=== PATIENT | female | born 1980 | race Caucasian/White ===

== ENCOUNTER 2024-12-08 15:47 | Emergency (ER) | payer OTHER, SELFPAY ==
--- NOTE | 2024-12-08 16:02 | PC.NURSE ---
Pt left from registration. Decided to go to ER due to pain.
--- OUTSIDE RECORDS SUMMARY | 2024-12-08 17:44 | XMS_ITS | Encounter Summary ---
Author Organization [facility] Healthcare Address [address] [place] [address] Care Team Providers Care Fashion Buying Internship Name Role Phone Zaire Garcia MD Unavailable [phone] Johanna Henry MD Primary Care Provide r Encounter Details Date Type Department Care Team (Late st Contact Info) Description 12/08/2024 - 12/08/2024 4:26 PM CDT Emergency [facility] Emergency Department [address] [place] [address] Discharge Disposition: ED Dismiss - Never Arrived Social History Tobacco Use Types Packs/Day Years Used Date Smoking Tobacco: Every Day Smokeless Tobacco: Current Comments:patient uses vapor cigarette Alcohol Use Standard Drinks/Week Comments Yes 0 (1 standard drink = 0.6 oz pur e alcohol) Social PHQ-2 Answer Date Recorded PHQ-2 Total Score (If total score is 3 or more points, staff should administer the PHQ-9) 2 10/16/2024 Comments No Sex and Gender Information Value Date Recorded Sex Assigned at Not on file 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 Gender Identity Not on file Sexual Orientation Not on file documented as of this encounter Discharge Disposition Disposition Code Departure Means Destination ED Dismiss - Never Arrived documented in this encounter Plan of Treatment Not on file documented as of this encounter Visit Diagnoses Not on filedocumented in this encounter Care Teams Fashion Buying Internship Relationship Specialty Start Date End Date Johanna Henry MD [address] [place] [id number] PCP - General Family Medicine 04/25/22 Zaire Garcia MD [address] [facility] [address] [address] Beef Pluck Trimmer Obstetrics and Gynecology 10/29/19 documented as of this encounter
--- OUTSIDE RECORDS SUMMARY | 2024-12-08 17:44 | XMS_ITS | Continuity of Care Document ---
Author Organization [facility] Address [address] [place] [address] Phone Care Team Providers Care Sales Trainer Name Role Phone Vangie Amador DO Unavailable Unavailable Procedures Procedure Date Flu Vaccine, Split, 3+yrs, IM 2 Advance Directives Directive Yes / No Effective Date File Name No Information Encounters Encounter Description Practice Location Reason(s) For Visit Diagnoses Date Provider Providers Copied on Encounter [facility], [address], [place], [place], [id number], [place] tel:[phone] Other No Information Marjorie Vences. [address] [facility], [address], [place], [place], [id number], [place]. tel:[phone] Family History Family Member Type Diagnosis Age At Onset No Information Payers Payer name Insurance type Covered libertarian ID Authoriza tion(s) [employer] [id number] Social History Type Description Quantity Date Captured Comments Sex Female Smoking Status No Information Chief Complaint And Reason For Visit No Information Reason For Referral Reason For Referral No Information History Of Present Illness Encounter Date Complaint History Of Prese nt Illness No Information Functional Status Date Functional Assessmen t No Information Instructions Date Instruction Additional Infor mation No Information Assessments Type Assessment Date No Information Patient Care Teams Name Effective Dates (start - stop) Status Members No Information
--- OUTSIDE RECORDS SUMMARY | 2024-12-08 17:44 | XMS_ITS | Encounter Summary ---
Author Organization [facility] Healthcare Address [address] [place] [address] Care Team Providers Care Photoengraver Name Role Phone Zaire Garcia MD Unavailable Johanna Henry MD Primary Care Provide r Encounter Details Date Type Department Care Team (Late st Contact Info) Description 10/21/2024 Results Follow-Up [facility] [address] [facility] [address] [place] [address] Jasmin Polanco, BACK HOE MACHINE OPERATOR [address] [facility] [address] [address] Social History Tobacco Use Types Packs/Day Years [...] on file 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 Gender Identity Not on file Sexual Orientation Not on file documented as of this encounter Plan of Treatment Not on file documented as of this encounter Visit Diagnoses Not on filedocumented in this encounter Care Teams Photoengraver Relationship Specialty Start Date End Date Johanna Henry MD [address] [facility] [address] [place] [address] PCP - General Family Medicine 04/25/22 Zaire Garcia MD [address] [facility] [address] [place] [address] [place] [address] Terra Cotta Roofer Obstetrics and Gynecology 10/29/19 documented as of this encounter
--- OUTSIDE RECORDS SUMMARY | 2024-12-08 17:44 | XMS_ITS | Encounter Summary ---
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 Let patient know her mammogram is benign. Repeat in 1 year ING TEACHER documented in this encounter Plan of Treatment Not on file documented as of this encounter Visit Diagnoses Not on filedocumented in this encounter Care Teams Bedspread Inspector Relationship Specialty Start Date End Date Johanna Henry MD [address] [facility] [address] [place] [address] PCP - General Family Medicine 04/25/22 Zaire Garcia MD [address] [facility] [address] [place] [address] Medical Billing Manager Obstetrics and Gynecology 10/29/19 documented as of this encounter
--- OUTSIDE RECORDS SUMMARY | 2024-12-08 17:44 | XMS_ITS | Clinical Summary ---
Author Organization [facility] B Address [address] [place] [address] Care Team Providers Care Manual Arts Therapist Name Role Phone Zaire Garcia MD Unavailable [phone] Johanna Henry MD Primary Care Provide r Allergies No known active allergies Medications No known medications Active Problems Problem Noted Date Diagnosed Date Benign mole 04/26/2023 Assessment & Plan (04/26/2023 9:43 AM CDT): New Will refer to dermatology for further evaluation BMI 29.0-29.9,adult 11/09/2022 Assessment & Plan (04/28/2024 10:03 AM CDT): She was counseled on the importance of maintaining a healthy weight. Encourage diet and exercise Assessment & Plan (04/26/2023 9:42 AM CDT): She was counseled on the importance of maintaining a healthy weight. Assessment & Plan (11/09/2022 11:13 AM REPATCHER): She was counseled on the importance of maintaining a healthy weight. She has been working on diet for a few weeks Given information to weightloss clinic here in [place] Encounter for wellness examination 04/25/2022 Assessment & Plan (04/28/2024 10:03 AM CDT): Labs reviewed and discussed Pap smear:follows with ob Mammo referral placed Tdap given F/u in 1 year annual Assessment & Plan (04/25/2023 10:24 PM CDT): Labs reviewed and discussed Pap smear:follows with ob F/u in 1 year annual Assessment & Plan (04/25/2022 11:06 AM CDT): Ordered CBC, cmp, lipid, hgb a1c, HIV, hep c, TSH, and free t4 Pap smear:follows with ob F/u in 1 year annual Resolved Problems Problem Noted Date Diagnosed Date Resolved Date Sterilization 10/01/2019 11/11/2019 Overview (10/01/2019): Added automatically from request for surgery [id number] No pathologic diagnosis 05/06/201307/04 Overview (12/06/2016): No diagnosis Encounters Date Type Department Care Team Description 12/08/2024 Nurse Triage [facility] Primary Care at [address] [address] Johanna Guzman MD 12/08/2024 - 12/08/2024 4:26 PM CDT Emergency [facility] Emergency Department [address] [place] [address] Discharge Disposition: ED Dismiss - Never Arrived 10/27/2024 Orders Only [facility] Primary Care at [address] [address] Johanna Guzman MD Visit for screening mammogram (Primary Dx) 10/27/2024 Results Follow-Up [facility] Primary Care at [address] [place] [address] Johanna Guzman MD 10/25/2024 9:43 AM REPATCHER - 10/25/2024 11:59 PM REPATCHER Hospital Encounter [facility] Imaging Center [address] [place] [address] Screening mammogram, encounter for Discharge Disposition: Discharge to home or self care 10/21/2024 Results Follow-Up [place] [address] [place] [address] Jasmin Polanco NP 10/16/2024 11:50 AM REPATCHER Lab [address] Decreased libido; Perimenopausal vasomotor symptoms; Irregular periods; Other fatigue; Perimenopausal vasomotor symptoms 10/16/2024 11:00 AM REPATCHER Office Visit [address] [place] [address] Jasmin Polanco NP Well woman exam (Primary Dx); Encounter for screening mammogram for breast cancer; Perimenopausal vasomotor symptoms; Decreased libido; Irregular periods; Other fatigue from Last 3 Months Immunizations Immunization Administration Dates Next Due Influenza, Quadrivalent, Spl it, Intramuscular 06/08/2017,06/12/2016 Influenza, Trivalent, IM (MDV) 06/26/2015 Influenza, Unspecified 06/22/2023(Deferr ed: Patient Refused),11/09/2022(Deferred: Patient Refused),04/25/2022(Deferred: Patient Refused),04/03/2022(Deferred: Patient Refused),09/03/2021(Deferred: Patient Refused),07/19/2021(Deferred: Patient Refused),04/03/2021(Deferred: Patient Refused),04/03/2021(Deferred: Patient Refused),06/03/2020(Deferred: Patient Refused),06/08/2017 Tdap 04/28/2024,03/03/2010 Surgical History Surgery Date Site/Laterality Comments SECTION 09/03/2007 - 09/02/2008 section OTHER SURGICAL HISTORY 09/03/2010 - 09/02/2011 Twins, breech/breech: delivery SALPINGECTOMY 10/29/2019 Bilateral Medical History Medical History Date Comments Hx Other Medical Twins Family History Medical History Relation Name Comments Hypertension Father Hypertension; Multiple myeloma Maternal Grandfather Can cer -multiple myeloma; Breast cancer Maternal Great-Grandmother Other Mother Alive and well; Other Sister 2 Alive and well; Relation Name Status Comments Father Maternal Grandfather Maternal Great-Grandmother Mother Alive Sister 1 Alive Sister 2 Social History Tobacco Use Types Packs/Day Years Used Date Smoking Tobacco: Every Day Smokeless Tobacco: Current Tobacco Cessation:Ready to Q uit: Not Asked; Counseling Given: Not Answered Comments:patient uses vapor cigarette Alcohol Use Standard Drinks/Week Comments Yes 0 (1 standard drink = 0.6 oz pur e alcohol) Social PHQ-2 Answer Date Recorded PHQ-2 Total Score (If total score is 3 or more points, staff should administer the PHQ-9) 2 10/16/2024 Comments No Sex and Gender Information Value Date Recorded Sex Assigned at Not on file Legal Sex Female 11:59 PM REPATCHER Gender Identity Not on file Sexual Orientation Not on file Obstetrics History Para Term AB IAB SAB Ectopic Multiple Livin g Live Births 3 2 2 0 1 0 1 0 1 3 3 Date Outcome GA Total Labor Labor/2nd/3rd Weight Sex Type Anes PTL Suzie A1 A5 Name Clin SAB 2007 Term 40w 0d M CS-Un spec Living 1 Term 38w 0d M CS-Un spec Living 1 Term 38w 0d F CS-Un spec Living Last Filed Vital Signs Vital Sign Reading Time Taken Comments Blood Pressure 126/80 10/16/2024 11:01 AM REPATCHER Pulse 79 04/28/2024 9:27 AM CDT Temperature 36.7 C (98 F) 04/28/2024 9:27 AM CDT Respiratory Rate 16 04/28/2024 9:27 AM CDT Oxygen Saturation 99% 04/28/2024 9:27 AM CDT Inhaled Oxygen Concentration - - Weight 73.5 kg (162 lb) 10/16/2024 11:01 AM REPATCHER Height 157.5 cm (5' 2 ) 10/16/2024 11:01 AM REPATCHER Body Mass Index 29.63 10/16/2024 11:01 AM REPATCHER Plan of Treatment Health Maintenance Due Date Last Done Comments Hepatitis B Screening 1999 Covid-19 Vaccine ( season) 2024 06/22/2021, 05/31/2021 Pneumococcal vaccine <65 (1 of 2 - PCV) 04/13/2025 Postponed from 2000 (Patient declined, but will receive in the future) Influenza Vaccine (Season Ended) 2025 06/08/2017, 06/08/2017, 06/12/2016, Additional history exists Cervical Cancer Screening 10/16/20252024, 10/13/2021, 09/29/2019, Additional history exists Depression Screening 10/16/2025 10/16/2024, 04/28/2024, 04/26/2023, Additional history exists Regular Well Visit/Exam 18-64 10/16/2025 10/16/2024, 04/28/2024, 04/26/2023, Additional history exists Breast Cancer Screening-Mammogram 10/25/2025 10/25/2024, 03/23/2023, 03/20/2023, Additional history exists DTaP/Tdap/Td Vaccine (3 - Td or Tdap) 04/28/2034 04/28/2024, 03/03/2010 Hepatitis C Screening Completed 04/25/2022 HPV Vaccines Aged Out No longer eligi ble based on patient's age to complete this topic Varicella Vaccines Discontinued Procedures Procedure Name Priority Date/Time Associated Diagnosis Comments SCREENING MAMMOGRAM BILATERAL W JOSÉ LUIS Schedule Routine, Read Routine (OP Routine) 10/25/2024 9:55 AM REPATCHER Screening mammogram, encounter for PAP AND HPV, REFLEX TO HPV GENOTYPES Routine 10/16/2024 12:45 PM REPATCHER Well woman exam DIFFERENTIAL AUTO Routine 10/16/2024 11: 48 AM REPATCHER Decreased libido Perimenopausal vasomotor symptoms Irregular periods Other fatigue INSULIN, TOTAL Routine 10/16/2024 11:48 AM REPATCHER Decreased libido Perimenopausal vasomotor symptoms Irregular periods Other fatigue THYROID FUNCTION CASCADE Routine 10/16/2024 11:48 AM REPATCHER Decreased libido Perimenopausal vasomotor symptoms Irregular periods Other fatigue CBC WITH AUTO DIFFERENTIAL Routine 10/16/2024 11:48 AM REPATCHER Decreased libido Perimenopausal vasomotor symptoms Irregular periods Other fatigue VITAMIN B12 Routine 10/16/2024 11:48 AM REPATCHER Decreased libido Perimenopausal vasomotor symptoms Irregular periods Other fatigue VITAMIN D 25 HYDROXY Routine 10/16/2024 11:48 AM REPATCHER Decreased libido Perimenopausal vasomotor symptoms Irregular periods Other fatigue FOLLICLE STIMULATING HORMONE Routine 10/16/2024 11:48 AM REPATCHER Decreased libido Perimenopausal vasomotor symptoms Irregular periods Other fatigue LUTEINIZING HORMONE (LH) Routine 10/16/2024 11:48 AM REPATCHER Decreased libido Perimenopausal vasomotor symptoms Irregular periods Other fatigue TESTOSTERONE, TOTAL AND FREE, SERUM Routine 10/16/2024 11:48 AM REPATCHER Decreased libido Perimenopausal vasomotor symptoms Irregular periods Other fatigue GLUCOSE, FASTING Routine 10/16/2024 11:4 8 AM REPATCHER Decreased libido Perimenopausal vasomotor symptoms Irregular periods Other fatigue HEPATITIS C ANTIBODY Routine 04/25/2022 11:48 AM CDT Healthcare maintenance Need for hepatitis C screening test from Last 3 Months or Most Recently Relevant to Health Maintenance Results * Screening Mammogram Bilateral W José Luis (10/25/2024 9:55 AM REPATCHER) Anatomical Region Laterality Modality Breast Bilateral Mammography 10/27/2024 8:55 AM REPATCHER Impressions 10/27/2024 8:55 AM REPATCHER There is no mammographic evidence of malignancy. A 1 year screening mammogram is recommended. BI-RADS: 1 - Negative. The patient has been or will be contacted. The patient will be entered into a reminder system with a target due date of 1 year for her next mammogram. Electronically signed by: Dominique Guy M.D. Narrative 10/27/2024 8:55 AM REPATCHER EXAMINATION: SCREENING MAMMOGRAM BILATERAL W JOSÉ LUIS ORDERING HEALTHCARE PROVIDER: SELF SCREENING MAMMOGRAM HISTORY: Routine screening mammography. COMPARISON: 03/23/2023, 03/20/2023, 12/19/2021 TECHNIQUE: CC and MLO views of the bilateral breasts were obtained with digital technique using breast tomosynthesis with C view. Computer aided detection was utilized. FINDINGS: DENSITY: The breasts are heterogeneously dense, which may obscure small masses. BREASTS: There are no suspicious masses, suspicious calcifications, or other suspicious findings in either breast. There has been no suspicious interval change. us Self Screening Mammogram IMG MAMMO PROCEDURES Fi nal Result * Pap and HPV, reflex to HPV Genotypes (10/16/2024 12:45 PM REPATCHER) Clinical indication Comment [facility] - 01 Comment:NEGATIVE FOR INTRAEP ITHELIAL LESION OR MALIGNANCY. Specimen adequacy: Comment [facility] - 01 Comment:Satisfactory for williams luation. No endocervical component is identified. Clinician provided ICD10 Comment [facility] - 01 Comment:Z01.419 Performed by Comment [facility] - 01 Comment:Lucia Chakraborty, Cyto technologist (ASCP) . . [facility] - 01 Note: Comment [facility] - 01 Comment: The Pap smear is a screening test designed to aid in the detection of premalignant and malignant conditions of the uterine cervix. It is not a diagnostic procedure and should not be used as the sole means of detecting cervical cancer. Both false-positive and false-negative reports do occur. Test methodology Comment [facility] - 01 Comment: This liquid based ThinPrep(R) pap test was screened with the use of an image guided system. HPV Aptima Negative Negative [facility] Comment: This nucleic acid amplification test detects fourteen high-risk HPV types (16,18,31,33,35,39,45,51,52,56,58,59,66,68) without differentiation. HPV Genotype Reflex Comment [facility] - 01 Comment:Criteria not met, HP V Genotype not performed. Thin prep-Endocervical 10/16/2024 12:45 PM REPATCHER 10/16/2024 Narrative [facility] - 2024 7:09 PM REPATCHER Performed at: - [address], [place] [id number] Hide And Skin Colerer: María Fajardo MD, Phone: [phone] Performed at: - [address] [id number] Hide And Skin Colerer: María Fajardo MD, Phone: [phone] Specimen Comment: [id number] Specimen Comment: No. of containers..01 ThinPrep Vial Jasmin Polanco NP LAB CYTOLOGY ORDERABLES Final Re sult [facility] - 01 [facility] 02 * Differential, auto (10/16/2024 11:48 AM REPATCHER) Neutrophil abs 4.5 1.5 - 6.5 K/cumm Imm gran abs 0.0 0.0 - 0.1 K/cumm [facility] ([place]) Lymphocyte abs 1.9 0.8 - 3.3 K/cumm [facility] ([place]) Monocyte abs 0.5 0.2 - 0.8 K/cumm [facility] ([place]) Eosinophil abs 0.1 0.0 - 0.5 K/cumm [facility] ([place]) Basophil abs 0.1 0.0 - 0.1 K/cumm [facility] ([place]) Neutrophil pct 63.1 % [facility] ([place]) Comment: Interpretive Data Percent cell count reference ranges are not reported, since discordance with absolute values may lead to misinterpretation of CBC data. Current Interpretive Data was last revised on 2017. Imm gran pct 0.6 % [facility] ([place]) Comment: Interpretive Data Percent cell count reference ranges are not reported, since discordance with absolute values may lead to misinterpretation of CBC data. Current Interpretive Data was last revised on 2017. Lymphocyte pct 27.1 % [facility] ([place]) Comment: Interpretive Data Percent cell count reference ranges are not reported, since discordance with absolute values may lead to misinterpretation of CBC data. Current Interpretive Data was last revised on 2017. Monocyte pct 6.8 % [facility] ([place]) Comment: Interpretive Data Percent cell count reference ranges are not reported, since discordance with absolute values may lead to misinterpretation of CBC data. Current Interpretive Data was last revised on 2017. Eosinophil pct 1.3 % [facility] ([place]) Comment: Interpretive Data Percent cell count reference ranges are not reported, since discordance with absolute values may lead to misinterpretation of CBC data. Current Interpretive Data was last revised on 2017. Basophil pct 1.1 % [facility] ([place]) Comment: Interpretive Data Percent cell count reference ranges are not reported, since discordance with absolute values may lead to misinterpretation of CBC data. Current Interpretive Data was last revised on 2017. Blood 10/16/2024 11:4 8 AM REPATCHER 10/16/2024 1:34 PM REPATCHER us Jasmin Polanco NP LAB BLOOD ORDERABLES Final Resul t Performing Organization Address City/[facility]/ZIP Co de Phone Number [facility] ([place]) 1 [facility] [place] [address] * Thyroid Function [place] (10/16/2024 11:48 AM REPATCHER) TSH 1.42 0.30 - 4.20 mcIUnit/mL Blood 10/16/2024 11:4 8 AM REPATCHER 10/16/2024 1:34 PM REPATCHER Jasmin Polanco NP LAB BLOOD ORDERABLES Final Resul t Performing Organization Address City/[facility] Co de Phone Number [facility] ([place]) 1 [facility] [place] [address] * CBC with auto differential (10/16/2024 11:48 AM REPATCHER) WBC 7.1 3.8 - 9.9 K/cumm Hgb 12.9 11.9 - 15.5 g/dL [facility] ([place]) Hct 37.9 35.6 - 45.5 % [facility] ([place]) Plt 375 150 - 400 K/cumm [facility] ([place]) MPV 10.0 9.1 - 12.3 fL [facility] ([place]) RBC 4.04 3.90 - 5.20 M/cumm [facility] ([place]) MCV 93.8 81.3 - 96.4 fL [facility] ([place]) MCH 31.9 27.1 - 33.3 pg [facility] ([place]) MCHC 34.0 32.3 - 35.7 g/dL [facility] ([place]) RDW CV 11.9 11.1 - 14.9 % [facility] ([place]) RDW SD 41.0 35.7 - 48.1 fL [facility] ([place]) NRBC abs 0.00 0.00 - 0.01 K/cumm [facility] ([place]) Blood 10/16/2024 11:4 8 AM REPATCHER 10/16/2024 1:34 PM REPATCHER us Jasmin Polanco NP LAB BLOOD ORDERABLES Final Resul t [facility] ([place]) 1 [facility] [employer] [place] [address] * (ABNORMAL) Vitamin D 25 hydroxy (10/16/2024 11:48 AM REPATCHER) Vitamin D 25-OH 23(L) 30 - 80 ng/mL Blood 10/16/2024 11:4 8 AM REPATCHER 10/16/2024 1:34 PM REPATCHER us Jasmin Polanco NP LAB BLOOD ORDERABLES Final Resul t Performing Organization Address City/[facility] Co de Phone Number [facility] ([place]) 1 [facility] [place] [address] * Insulin, total (10/16/2024 11:48 AM REPATCHER) Pathologist [facility] Insulin 13.0 2.6 - 25.0 mcIUnit/mL Comment:Testing performed by : [facility], [address] [facility], [place]., [address] Blood 10/16/2024 11:4 8 AM REPATCHER 10/16/2024 4:04 PM REPATCHER us Jasmin Polanco NP LAB BLOOD ORDERABLES Final Resul t [facility] ([place]) 1 [facility] [place] [address] * (ABNORMAL) Testosterone, Total and Free, Serum (10/16/2024 11:48 AM REPATCHER) Testosterone 33 8 - 60 ng/dL [facility] Comment: ADDITIONAL INFORMATION Testing performed by Liquid Chromatography-Tandem Mass Spectrometry (LC-MS/MS). This test was developed and its performance characteristics determined by [facility] in a manner consistent with CLIA requirements. This test has not been cleared or approved by the U.S. Food and Drug Administration. Test Performed by: [facility] - [address] [address] [employer] Colerer: Joel Lopez Ph.D.; CLIA# [id number] Testosterone, free 1.07(H) <0.13 - 0.98 ng/dL [facility] ([place]) Comment: ADDITIONAL INFORMATION This test was developed and its performance characteristics determined by [facility] in a manner consistent with CLIA requirements. This test has not been cleared or approved by the U.S. Food and Drug Administration. Blood 10/16/2024 11:4 8 AM REPATCHER 10/16/2024 1:34 PM REPATCHER Jasmin Polanco NP LAB BLOOD ORDERABLES Final Resul t [facility] ([place]) 1 [facility] [place] [address] [facility] * LH (10/16/2024 11:48 AM REPATCHER) LH 6.7 IUnits/L Comment: Interpretive Data Males: Adults: 1.7 - 8.6 IUnits/L Females: Follicular: 2.4 - 12.6 IUnits/L Ovulation: 14.0 - 95.6 IUnits/L Luteal: 1.0 - 11.4 IUnits/L Postmenopausal: 7.7 - 58.5 IUnits/L Current interpretive data was last revised on 2019. Testing performed by: [facility], [address] [place] [address]., [address] Blood 10/16/2024 11:4 8 AM REPATCHER 10/16/2024 4:04 PM REPATCHER Jasmin Polanco NP LAB BLOOD ORDERABLES Final Resul t Performing Organization Address City/[facility] Co de Phone Number [facility] ([place]) [address] [place] [address] [place] [address] * Follicle stimulating hormone (10/16/2024 11:48 AM REPATCHER) FSH 4.6 IUnits/L Comment: Interpretive Data Male: Adults: 1.5 - 12.4 IUnits/L Female: Follicular: 3.5 - 12.5 IUnits/L Ovulation: 4.7 - 21.5 IUnits/L Luteal: 1.7 - 7.7 IUnits/L Postmenopausal: 25.8 - 134.8 IUnits/L Current interpretive data was last revised 2015. Testing performed by: [facility], [address] [place] [address]., [address] Blood 10/16/2024 11:4 8 AM REPATCHER 10/16/2024 4:04 PM REPATCHER Jasmin Polanco NP LAB BLOOD ORDERABLES Final Resul t Performing Organization Address City/[facility] Co de Phone Number [facility] ([place]) [address] [place] [address] [place] [address] * (ABNORMAL) Glucose, fasting (10/16/2024 11:48 AM REPATCHER) Glucose, fasting 106(H) 70 - 99 mg/dL Blood 10/16/2024 11:4 8 AM REPATCHER 10/16/2024 1:34 PM REPATCHER Jasmin Polanco NP LAB BLOOD ORDERABLES Final Resul t [facility] ([place]) 1 [facility] [place] [address] * Vitamin B12 (10/16/2024 11:48 AM REPATCHER) Vitamin B12 464 230 - 1,250 pg/mL Blood 10/16/2024 11:4 8 AM REPATCHER 10/16/2024 1:34 PM REPATCHER Jasmin Polanco NP LAB BLOOD ORDERABLES Final Resul t Performing Organization Address [facility] Co de Phone Number [facility] M[facility] ([place]) 1 [facility] [place] [address] * Hepatitis C antibody (04/25/2022 11:48 AM CDT) Hep C Ab Nonreactive Nonreactive [facility] ([place]) Comment: Interpretive Data Nonreactive: Antibodies to HCV not detected. Does NOT exclude the possibility of recent exposure to HCV. Equivocal: Equivocal for HCV antibodies. Supplemental molecular testing will be automatically performed to determine infection status in accordance with current CDC screening recommendations. Reactive: Positive for HCV antibodies. This may represent current or past HCV infection. Supplemental molecular testing will be automatically performed to determine current infection status in accordance with current CDC screening recommendations. Interpretive data was last revised on 2019. Testing performed by: [facility], [address] [place] [address], [place]., [address] Blood 04/25/2022 11:4 8 AM CDT 04/25/2022 2:14 PM CDT Johanna Henry MD LAB MICROBIOL OGY - GENERAL ORDERABLES Edited Result - Final Performing Organization Address City/[facility]/ZIP Co de Phone Number [facility] ([place]) 1 [facility] [employer] [place] [phone] from Last 3 Months or Most Recently Relevant to Health Maintenance Insurance [place] [facility] HMO/PPO Address: [address] [address] [place] [address] [facility]LY [facility] OPEN ACCESS CIGNA [facility] HMO/PPO Address: [address] [address] [place] [address] CIG OPEN ACCESS Care Teams Manual Arts Therapist Relationship Specialty Start Date End Date Johanna Henry MD [address] [place] [address] PCP - General Family Medicine 04/25/22 Zaire Garcia MD [address] [place] [address] [facility] Ob[facility] Gyne[facility] 10/29/19
--- OUTSIDE RECORDS SUMMARY | 2024-12-08 17:44 | XMS_ITS | Referral Summary ---
Author Organization [facility] Building B Address [address] [place] [address] Care Team Providers Care Front Office Coordinator Name Role Phone Zaire Garcia MD Unavailable [phone] Johanna Henry MD Primary Care Provide r Encounters Date Type Department Care Team Description 12/08/2024 Nurse Triage [facility] Primary Care at [address] [place] [phone] Johanna Guzman MD 12/08/2024 - 12/08/2024 4:26 PM CDT Emergency [facility] Emergency Department [address] [place] [address] Discharge Disposition: ED Dismiss - Never Arrived 10/27/2024 Orders Only [facility] Primary Care at [address] [place] [phone] Johanna Gumzan MD Visit for screening mammogram (Primary Dx) 10/27/2024 Results Follow-Up [facility] Primary Care at [address] [place] [address] Johanna Guzman MD 10/25/2024 9:43 AM PICKLE PUMPER - 10/25/2024 11:59 PM PICKLE PUMPER Hospital Encounter [facility] Imaging Center [address] [place] [address] Screening mammogram, encounter for Discharge Disposition: Discharge to home or self care 10/21/2024 Results Follow-Up [facility] [address] [place] [address] Jasmin Polanco NP 10/16/2024 11:50 AM PICKLE PUMPER Lab [address] Decreased libido; Perimenopausal vasomotor symptoms; Irregular periods; Other fatigue; Perimenopausal vasomotor symptoms 10/16/2024 11:00 AM PICKLE PUMPER Office Visit [address] [place] [address] Jasmin Polanco NP Well woman exam (Primary Dx); Encounter for screening mammogram for breast cancer; Perimenopausal vasomotor symptoms; Decreased libido; Irregular periods; Other fatigue from Last 3 Months Allergies No known active allergies Medications No [...] weight. Assessment & Plan (11/09/2022 11:13 AM PICKLE PUMPER): She was counseled on the importance of maintaining a healthy weight. She has been working on diet for a few weeks Given information to weightloss clinic here in [place] Encounter for wellness examination 04/25/2022 Assessment & [...] (10/01/2019): Added automatically from request for surgery [id number] No pathologic diagnosis 05/06/201307/04 Overview (12/06/2016): No diagnosis Immunizations Immunization Administration Dates Next Due Influenza, Quadrivalent, Spl it, Intramuscular 06/08/2017,06/12/2016 Influenza, Trivalent, IM (MDV) 06/26/2015 Influenza, Unspecified 06/22/2023(Deferr ed: Patient Refused),11/09/2022(Deferred: Patient Refused),04/25/2022(Deferred: Patient Refused),04/03/2022(Deferred: Patient Refused),09/03/2021(Deferred: Patient Refused),07/19/2021(Deferred: Patient Refused),04/03/2021(Deferred: Patient Refused),04/03/2021(Deferred: Patient Refused),06/03/2020(Deferred: Patient Refused),06/08/2017 Tdap 04/28/2024,03/03/2010 Social History Tobacco Use Types Packs/Day Years [...] on file Legal Sex Female 11:59 PM PICKLE PUMPER Gender Identity Not on file Sexual Orientation Not on file Last Filed Vital Signs Vital Sign Reading Time Taken Comments Blood Pressure 126/80 10/16/2024 11:01 AM PICKLE PUMPER Pulse 79 04/28/2024 9:27 AM CDT Temperature 36.7 C (98 F) 04/28/2024 9:27 AM CDT Respiratory Rate 16 04/28/2024 9:27 AM CDT Oxygen Saturation 99% 04/28/2024 9:27 AM CDT Inhaled Oxygen Concentration - - Weight 73.5 kg (162 lb) 10/16/2024 11:01 AM PICKLE PUMPER Height 157.5 cm (5' 2 ) 10/16/2024 11:01 AM PICKLE PUMPER Body Mass Index 29.63 10/16/2024 11:01 AM PICKLE PUMPER Plan of Treatment Not on file Procedures Procedure Name Priority Date/Time Associated Diagnosis Comments SCREENING MAMMOGRAM BILATERAL W JOSÉ LUIS Schedule Routine, Read Routine (OP Routine) 10/25/2024 9:55 AM PICKLE PUMPER Screening mammogram, encounter for PAP AND HPV, REFLEX TO HPV GENOTYPES Routine 10/16/2024 12:45 PM PICKLE PUMPER Well woman exam DIFFERENTIAL AUTO Routine 10/16/2024 11: 48 AM PICKLE PUMPER Decreased libido Perimenopausal vasomotor symptoms Irregular periods Other fatigue INSULIN, TOTAL Routine 10/16/2024 11:48 AM PICKLE PUMPER Decreased libido Perimenopausal vasomotor symptoms Irregular periods Other fatigue THYROID FUNCTION CASCADE Routine 10/16/2024 11:48 AM PICKLE PUMPER Decreased libido Perimenopausal vasomotor symptoms Irregular periods Other fatigue CBC WITH AUTO DIFFERENTIAL Routine 10/16/2024 11:48 AM PICKLE PUMPER Decreased libido Perimenopausal vasomotor symptoms Irregular periods Other fatigue VITAMIN B12 Routine 10/16/2024 11:48 AM PICKLE PUMPER Decreased libido Perimenopausal vasomotor symptoms Irregular periods Other fatigue VITAMIN D 25 HYDROXY Routine 10/16/2024 11:48 AM PICKLE PUMPER Decreased libido Perimenopausal vasomotor symptoms Irregular periods Other fatigue FOLLICLE STIMULATING HORMONE Routine 10/16/2024 11:48 AM PICKLE PUMPER Decreased libido Perimenopausal vasomotor symptoms Irregular periods Other fatigue LUTEINIZING HORMONE (LH) Routine 10/16/2024 11:48 AM PICKLE PUMPER Decreased libido Perimenopausal vasomotor symptoms Irregular periods Other fatigue TESTOSTERONE, TOTAL AND FREE, SERUM Routine 10/16/2024 11:48 AM PICKLE PUMPER Decreased libido Perimenopausal vasomotor symptoms Irregular periods Other fatigue GLUCOSE, FASTING Routine 10/16/2024 11:4 8 AM PICKLE PUMPER Decreased libido Perimenopausal vasomotor symptoms Irregular periods Other fatigue HEPATITIS C ANTIBODY Routine 04/25/2022 11:48 AM CDT Healthcare maintenance Need for hepatitis C screening test from Last 3 Months or Most Recently Relevant to Health Maintenance Results * Screening Mammogram Bilateral W José Luis (10/25/2024 9:55 AM PICKLE PUMPER) Anatomical Region Laterality Modality Breast Bilateral Mammography 10/27/2024 8:55 AM PICKLE PUMPER Impressions 10/27/2024 8:55 AM PICKLE PUMPER There is no mammographic evidence of malignancy. A 1 year screening mammogram is recommended. BI-RADS: 1 - Negative. The patient has been or will be contacted. The patient will be entered into a reminder system with a target due date of 1 year for her next mammogram. Electronically signed by: Dominique Guy M.D. Narrative 10/27/2024 8:55 AM PICKLE PUMPER EXAMINATION: SCREENING MAMMOGRAM BILATERAL W JOSÉ LUIS [...] There has been no suspicious interval change. Self Screening Mammogram IMG MAMMO PROCEDURES Fi nal Result * Pap and HPV, reflex to HPV Genotypes (10/16/2024 12:45 PM PICKLE PUMPER) Clinical indication Comment [facility] - Comment:NEGATIVE FOR INTRAEP ITHELIAL LESION OR MALIGNANCY. Specimen adequacy: Comment [facility] - 01 Comment:Satisfactory for williams luation. No endocervical component is identified. Clinician provided ICD10 Comment [facility] - 01 Comment:[id number] Performed by Comment [facility] - Comment:Lucia Chakraborty, Cyto technologist (ASCP) . . [...] do occur. Test methodology Comment [facility] - Comment: This liquid based ThinPrep(R) pap test was screened with the use of an image guided system. HPV Aptima Negative Negative [facility] Comment: This nucleic acid amplification test detects fourteen high-risk HPV types (16,18,31,33,35,39,45,51,52,56,58,59,66,68) without differentiation. HPV Genotype Reflex Comment [facility] - Comment:Criteria not met, HP V Genotype not performed. Thin prep-Endocervical 10/16/2024 12:45 PM PICKLE PUMPER 10/16/2024 Narrative [facility] - 2024 7:09 PM PICKLE PUMPER Performed at: - [facility], [place] [id number] Medical Staffing Coordinator: María Fajardo MD, Phone: [phone] Performed at: - [facility], [place] [id number] Medical Staffing Coordinator: María Fajardo MD, Phone: [phone] Specimen Comment: [id number] Specimen Comment: No. of containers..01 ThinPrep Vial Jasmin Polanco RETAIL SALES CLERK LAB CYTOLOGY ORDERABLES Final Re sult [facility] - 01 [facility] 02 * Differential, auto (10/16/2024 11:48 AM PICKLE PUMPER) Neutrophil abs 4.5 1.5 - 6.5 K/cumm [...] on 2017. Blood 10/16/2024 11:4 8 AM PICKLE PUMPER 10/16/2024 1:34 PM PICKLE PUMPER us Jasmin Polanco NP LAB BLOOD ORDERABLES Final Resul t Performing Organization Address City/[facility]/ZIP Co de Phone Number [facility] ([place]) 1 [facility] [place] [address] * Thyroid Function [place] (10/16/2024 11:48 AM PICKLE PUMPER) Pathologist [facility] TSH 1.42 0.30 - 4.20 mcIUnit/mL Blood 10/16/2024 11:4 8 AM PICKLE PUMPER 10/16/2024 1:34 PM PICKLE PUMPER us Jasmin Polanco NP LAB BLOOD ORDERABLES Final Resul t Performing Organization Address City/[facility] de Phone Number [facility] ([place]) 1 [place] [address] * CBC with auto differential (10/16/2024 11:48 AM PICKLE PUMPER) WBC 7.1 3.8 - 9.9 K/cumm Hgb [...] ([place]) MCHC 34.0 32.3 - 35.7 g/dL [facility] ([place]) RDW CV 11.9 11.1 - 14.9 % [facility] ([place]) RDW SD 41.0 35.7 - 48.1 fL [facility] ([place]) NRBC abs 0.00 0.00 - 0.01 K/cumm [facility] ([place]) Blood 10/16/2024 11:4 8 AM PICKLE PUMPER 10/16/2024 1:34 PM PICKLE PUMPER us Jasmin Polanco NP LAB BLOOD ORDERABLES Final Resul t [facility] ([place]) 1 [facility] [place] [address] * (ABNORMAL) Vitamin D 25 hydroxy (10/16/2024 11:48 AM PICKLE PUMPER) Vitamin D 25-OH 23(L) 30 - 80 ng/mL Blood 10/16/2024 11:4 8 AM PICKLE PUMPER 10/16/2024 1:34 PM PICKLE PUMPER us Jasmin Polanco NP LAB BLOOD ORDERABLES Final Resul t Performing Organization Address [facility] Co de Phone Number [facility] ([place]) 1 [facility] [employer] [place] [address] * Insulin, total (10/16/2024 11:48 AM PICKLE PUMPER) Insulin 13.0 2.6 - 25.0 mcIUnit/mL Comment:Testing performed by : [facility], 1 [place]., [address] Blood 10/16/2024 11:4 8 AM PICKLE PUMPER 10/16/2024 4:04 PM PICKLE PUMPER us Jasmin Polanco NP LAB BLOOD ORDERABLES Final Resul t [facility] ([place]) 1 [facility] [employer] [address] * (ABNORMAL) Testosterone, Total and Free, Serum (10/16/2024 11:48 AM PICKLE PUMPER) Testosterone 33 8 - 60 ng/dL [facility] Comment: ADDITIONAL INFORMATION Testing performed by Liquid Chromatography-Tandem Mass Spectrometry (LC-MS/MS). This test was developed and its performance characteristics determined by [facility] in a manner consistent with CLIA requirements. This test has not been cleared or approved by the U.S. Food and Drug Administration. Test Performed by: [facility] [address] [place] [address] Medical Staffing Coordinator: Joel Lopez Ph.D.; CLIA# [id number] Testosterone, free 1.07(H) <0.13 - 0.98 ng/dL [facility] ([place]) Comment: ADDITIONAL INFORMATION This test was developed and its performance characteristics determined by [facility] in a manner consistent with CLIA requirements. This test has not been cleared or approved by the U.S. Food and Drug Administration. Blood 10/16/2024 11:4 8 AM PICKLE PUMPER 10/16/2024 1:34 PM PICKLE PUMPER Jasmin Polanco RETAIL SALES CLERK LAB BLOOD ORDERABLES Final Resul t [facility]ST[facility] ([place]) 1 [facility] [place] [address] [place] ref Lab * LH (10/16/2024 11:48 AM PICKLE PUMPER) Pathologist [facility] LH 6.7 IUnits/L Comment: Interpretive Data Males: Adults: 1.7 - 8.6 IUnits/L Females: Follicular: 2.4 - 12.6 IUnits/L Ovulation: 14.0 - 95.6 IUnits/L Luteal: 1.0 - 11.4 IUnits/L Postmenopausal: 7.7 - 58.5 IUnits/L Current interpretive data was last revised on 2019. Testing performed by: [facility], [address] [place]., [address] Blood 10/16/2024 11:4 8 AM PICKLE PUMPER 10/16/2024 4:04 PM PICKLE PUMPER us Jasmin Polanco NP LAB BLOOD ORDERABLES Final Resul t [facility] ([place]) 1 [facility] [employer] [place] [address] * Follicle stimulating hormone (10/16/2024 11:48 AM PICKLE PUMPER) FSH 4.6 IUnits/L Comment: Interpretive Data Male: Adults: 1.5 - 12.4 IUnits/L Female: Follicular: 3.5 - 12.5 IUnits/L Ovulation: 4.7 - 21.5 IUnits/L Luteal: 1.7 - 7.7 IUnits/L Postmenopausal: 25.8 - 134.8 IUnits/L Current interpretive data was last revised 2015. Testing performed by: [facility], [address] [place]., [address] Blood 10/16/2024 11:4 8 AM PICKLE PUMPER 10/16/2024 4:04 PM PICKLE PUMPER us Jasmin Polanco NP LAB BLOOD ORDERABLES Final Resul t Performing Organization Address City/[facility] Co de Phone Number [facility] ([place]) 1 [facility] [place] [address] * (ABNORMAL) Glucose, fasting (10/16/2024 11:48 AM PICKLE PUMPER) Glucose, fasting 106(H) 70 - 99 mg/dL Blood 10/16/2024 11:4 8 AM PICKLE PUMPER 10/16/2024 1:34 PM PICKLE PUMPER Jasmin Polanco NP LAB BLOOD ORDERABLES Final Resul t [facility] ([place]) 1 [facility] [place] [address] * Vitamin B12 (10/16/2024 11:48 AM PICKLE PUMPER) Vitamin B12 464 230 - 1,250 pg/mL Blood 10/16/2024 11:4 8 AM PICKLE PUMPER 10/16/2024 1:34 PM PICKLE PUMPER Jasmin Polanco NP LAB BLOOD ORDERABLES Final Resul t Performing Organization Address [facility] Co de Phone Number [facility]UL MCCLELLAND ([place]) 1 [facility] [place] [address] * Hepatitis C antibody (04/25/2022 11:48 AM CDT) Hep C Ab Nonreactive Nonreactive [facility] ([place]) Comment: Interpretive Data Nonreactive: Antibodies to HCV [...] last revised on 2019. Testing performed by: [facility], [address] [place] [address], [place]., [address] Blood 04/25/2022 11:4 8 AM CDT 04/25/2022 2:14 PM CDT Johanna Henry MD LAB MICROBIOL OGY - GENERAL ORDERABLES Edited Result - Final Performing Organization Address [facility]/ZIP Co de Phone Number [facility]LL[facility] ([place]) 1 [facility] [place] [address] from Last 3 Months or Most Recently Relevant to Health Maintenance Insurance [employer] ACCESS [place] [facility] OPEN ACCESS [facility] CIGNA OPEN ACCESS Care Teams Front Office Coordinator Relationship Specialty Start Date End Date Johanna Henry MD [address] [place] [address] PCP - General Family Medicine 04/25/22 Zaire Garcia MD [address] [place] [address] Vice President Of Consulting Services Obstetrics and Gynecology 10/29/19
--- OUTSIDE RECORDS SUMMARY | 2024-12-08 17:44 | XMS_ITS | Encounter Summary ---
Author Organization [facility] Healthcare Address [address] [place] [address] Care Team Providers Care Torch Straightener And Heater Name Role Phone Zaire Garcia MD Unavailable [phone] Johanna Henry MD Primary Care Provide r Encounter Details Date Type Department Care Team (Late st Contact Info) Description 12/08/2024 Nurse Triage [facility] Primary Care at [address] [place] [address] Johanna Henry MD [address] [place] [address] [address] [place] [address] Social History Tobacco Use Types [...] on file Legal Sex Female 11:59 PM NETBACKUP ADMIN Gender Identity Not on file Sexual Orientation Not on file documented as of this encounter Miscellaneous Notes * Telephone Encounter - Sendy Jimenez RN - 12/08/2024 4:39 PM CDT Anabel Blanco reports she developed abdominal cramps at about 10 this morning. About 30 mins later, she has worse cramps. She tried a heating pad to her abdomen which did not help. She vomited x2. Pain felt similar to labor pains. She went to the ER but pain subsided while in the waiting room. She left the ER. Since leaving the ER cramps returned, report they feel like regular period cramps . Next menstrual cycle is expected in 1 week. Denies nausea. She had BM this morning, unsure if itwas diarrhea. She has been afebrile but did get cold sweats while her pain was severe. Denies pain in her back. Reports normal urine output, denies pain with urination. Denies distension of abdomen. heavy repairer: Be seen within 24 hours. Apt scheduled with DANIEL [facility] DIET: * Drink adequate fluids. Eat a bland diet. * Avoid alcohol or caffeinated beverages * Avoid greasy or fatty foods. Recommended BRAT diet CALL BACK IF: * Severe pain lasts over 1 hour * Constant pain lasts over 2 hours * You become worse Reason for Disposition [1] MODERATE pain (e.g., interferes with normal activities) AND [2] pain comes and goes (cramps) AND [3] present > 24 hours (Exception: Pain with Vomiting or Diarrhea - see that Guideline.) Protocols used: Abdominal Pain - [id number] * Telephone Encounter - Sendy Jimenez RN - 12/08/2024 4:36 PM CDT Regarding: Abdominal Pain ----- Message from Rolf Salazar sent at 12/08/2024 4:35 PM CDT ----- Symptom Based Call Chief Complaint(s): Abdominal Pain Duration: started this morning around 10:00 What type of symptom(s) is the patient experiencing? Red Flag. Is the patient concerned they are experiencing a medical emergency requiring an ambulance? No Additional Comments: Patient reports she started having abdominal cramps this morning which then worsened into severe pain in the center of her abdomen. Patient stated it was comparable to labor pains. Patient vomited twice throughout the day. Patient had her take her to [facility] but left without being evaluated because the severe pain went away while she was waiting. Patient states she now has only mild cramping. Does message need to be routed? Yes-Action Needed documented in this encounter Plan of Treatment Not on file documented as of this encounter Visit Diagnoses Not on filedocumented in this encounter Care Teams Torch Straightener And Heater Relationship Specialty Start Date End Date Johanna Henry MD [address] [facility] [address] [place] [address] PCP - General Family Medicine 04/25/22 Zaire Garcia MD [address] [facility] [address] [place] [address] Sustainability Communicator Obstetrics and Gynecology 10/29/19 documented as of this encounter
--- OUTSIDE RECORDS SUMMARY | 2024-12-08 17:45 | XMS_ITS | Continuity of Care Document ---
Author Organization [facility] Address [address] [place] [address] Phone Care Team Providers Care Railroad Signal Technician Name Role Phone Vangie Amador DO Unavailable Unavailable Procedures Procedure Date Flu Vaccine, Split, 3+yrs, IM 2 Advance Directives Directive Yes / No Effective Date File Name No Information Encounters Encounter Description Practice Location Reason(s) For Visit Diagnoses Date Provider Providers Copied on Encounter [facility], [address], [place], [place], [id number], [place] tel:[phone] Other No Information Marjorie Vences. [address] [facility], [address], [place], [place], [id number], [place]. tel:[phone] Family History Family Member Type Diagnosis Age At Onset No Information Payers Payer name Insurance type Covered constitution party ID Authoriza tion(s) [employer] [id number] Social History Type Description Quantity Date Captured [...]
== END 2024-12-08 16:02 | disposition left against medical advice (07) ==
DX: Z53.21 Procedure and treatment not carried out due to patient leaving prior to being seen by health care provider (principal)
CPT/HCPCS: 99199